=== PATIENT | male | born 1955 | race Caucasian/White ===

== ENCOUNTER 2019-06-13 15:17 | Inpatient (IN) | payer OTHER, SELFPAY ==
[2019-06-03 08:42] VITALS: BP 156/86; PULSE 96; RESP 18; TEMP 37.1; O2SAT 97; BMI 27.4
--- NOTE | 2019-06-11 08:18 | PM.IMHP ---
H&P: HPI History of Present Illness Chief complaint: Prostate CA Narrative: Shaheed Gibbs is a 63 year old male known to me with long history of BPH and abnormal PSA. He's had prior negative prostate biopsies but recent genomic testing suggest high risk of significant prostate cancer. Recent +repeat biopsy showed a 69gm prostate with 12 of 12 cores having Rosa 3+3=6, 3+4=7, 4+3=7 and 4+4=8 cancer. Additionally, his biopsy showed some areas of intraductal ca. Staging CT-abd/pevis, bone scan and CXR were unremarkable. After discussion of therapeutic options (including active surveillance, androgen ablation, radiation therapy in its various forms and radical surgery) he's elected for robotic radical prostatectomy. He's aware of the risks of this procedure including, but not limited to, adverse cardiopulmonary events, rectal injury, failure to control his cancer, urinary incontinence and erectile dysfunction. Review of Systems Constitutional: Constitutional: Denies chills, Denies fatigue, Denies fever(s) and Denies headache(s) Eyes: Eyes: Denies blurry vision ENT: Denies vertigo, Denies dizziness, Denies headache(s) and Denies sore throat Cardiovascular: Cardiovascular: Denies chest pain, Denies syncope, Denies lightheadedness, Denies palpitations, Denies dyspnea and Denies dyspnea on exertion Respiratory: Respiratory: Denies hemoptysis, Denies dyspnea and Denies dyspnea on exertion Gastrointestinal: Gastrointestinal: Denies melena, Denies bloating, Denies hematochezia, Denies change in bowel habits, Denies change in stool character, Denies constipation, Denies diarrhea and Denies vomiting Genitourinary: Genitourinary: Denies hematuria, Denies dysuria, Denies testicular pain, Denies urinary frequency, Denies urinary hesitancy and Denies urinary urgency Integumentary/Breasts: Skin/Breast: Denies pruritus, Denies lesions and Denies rash Neurologic: Denies confusion, Denies vertigo, Denies dizziness, Denies syncope and Denies headache(s) Psychiatric: Psychiatric: Denies anxiety, Denies change in appetite and Denies confusion Endocrine: Endocrine: Denies fatigue and Denies palpitations PMFSH Social History Social History Gender identity (if verbalized by the patient): Male Meds Home Medications and Allergies Home Medications Medication Instructions Recorded Confirmed Type aspirin 81 mg PO DAILY 06/03/19 06/03/19 History hydrochlorothiazide 12.5 mg PO DAILY 06/03/19 06/03/19 History multivitamin [Multiple Vitamins] 1 tablet PO DAILY 06/03/19 06/03/19 History niacin 500 mg PO DAILY 06/03/19 06/03/19 History omega 4-fil-okg-fish oil [Fish Oil] 1 cap PO DAILY 06/03/19 06/03/19 History simvastatin 40 mg PO HS 06/03/19 06/03/19 History tamsulosin 0.4 mg PO DAILY 06/03/19 06/03/19 History verapamil 240 mg PO DAILY 06/03/19 06/03/19 History Allergies Allergy/AdvReac Type Severity Reaction Status Date / Time Penicillins AdvReac Intermediate Nausea Unverified 06/03/19 08:38 Exam Const: General: healthy appearing, comfortable, no acute distress and well developed; No confused Nutritional Appearance: well nourished Orientation/consciousness: oriented x3 and No confused HENMT: Head: normocephalic and atraumatic Ears: external ears normal Face and sinus: normal facial exam Mouth: Yes lip normal Teeth and gingiva: dentition normal Eyes: General: appearance normal, both eyes and all related structures Alignment and Position: alignment normal Eyelids: eyelids normal Cornea: corneas normal Pupils: PERRL EOM: EOM intact bilaterally Neck: Neck: normal visual inspection, full ROM and no JVD Chest: Chest palpation & inspection: normal inspection of the chest Resp: Effort & Inspection: normal respiratory effort and no use of accessory muscles Auscultation: clear to auscultation bilaterally Cardio: Jugular venous distension: no JVD Rate: regular rate Rhythm: regul
--- NOTE | 2019-06-11 12:52 | WPDANESEPPF ---
Anes - Initial Pre Proc Eval Procedure: Operation Date: 06/12/19 07:30 Proposed Procedures p Robotic Radical Prostatectomy, Bilateral Pelvic Lymphadenectomy - Rene Staples MD Date/Time: 06/11/19 12:52 Surgeon: Rene Staples MD Pre Op Diagnosis: Prostate CA Patient Data Age: 63 Gender: M Height: 5 ft 7 in Weight: 79.5 kg Last Vital Signs Temp 98.8 F 06/03/19 08:42 Pulse 96 06/03/19 08:42 Resp 18 06/03/19 08:42 BP 156/86 H 06/03/19 08:42 Pulse Ox 97 06/03/19 08:42 Allergies Allergy/AdvReac Type Severity Reaction Status Date / Time Penicillins AdvReac Intermediate Nausea Unverified 06/03/19 08:38 Home Medications Medication Instructions Recorded Confirmed Type aspirin 81 mg PO DAILY 06/03/19 06/03/19 History hydrochlorothiazide 12.5 mg PO DAILY 06/03/19 06/03/19 History multivitamin [Multiple Vitamins] 1 tablet PO DAILY 06/03/19 06/03/19 History niacin 500 mg PO DAILY 06/03/19 06/03/19 History omega 4-wug-suh-fish oil [Fish Oil] 1 cap PO DAILY 06/03/19 06/03/19 History simvastatin 40 mg PO HS 06/03/19 06/03/19 History tamsulosin 0.4 mg PO DAILY 06/03/19 06/03/19 History verapamil 240 mg PO DAILY 06/03/19 06/03/19 History Patient hx anesthesia problems: none Family hx anesthesia problems: none [facility] Past Medical History Medical History (Updated 06/11/19 @ 12:51 by Chung Sharif MD) Hyperlipidemia Hypertension Social History Social History Gender identity (if verbalized by the patient): Male Anes - Eval Final PreProcedure Day of Procedure 06/11/19 12:52 Patient weight: normal Heart: regular rate and rhythm Lungs: clear to auscultation Airway: Mallampati scale class III Neurological: alert and oriented Last oral intake: >/= 8 hours ASA classification: III Emergent: no Anesthetic plan: proceed Anesthesia type and monitoring: general ETT and standard monitoring Informed Consent: The patient's anesthetic plan and its attendant risks and benefits were discussed with the patient/family/POA. Questions were solicited and answers provided to the satisfaction of the patient/family/POA.
[2019-06-12] VITALS (12 sets, daily range): BP systolic 122–181; BP diastolic 66–102; PULSE 74–95; RESP 12–18; TEMP 36.2–36.9; O2SAT 91–100; BMI 26.4
[2019-06-12] MEDS: LACTATED RINGERS 1,000 ML 30 ML IV CONT ×2 (06:25→11:12)
--- NOTE | 2019-06-12 07:14 | WPDHPUPDATE1 ---
History and Physical Update Update Date/Time: 06/12/19 07:14 History and Physical has been reviewed, including an updated exam of the patient. There are NO changes in the patient's condition. Risks, benefits, and alternatives have been discussed and questions answered. Patient agrees to proceed with procedure.
[2019-06-12] MEDS: ceFAZolin 2 GM/D5W 50 ML 2 GM/50 ML BAG IVPB (07:33)
--- NOTE | 2019-06-12 11:15 | PM.PROC ---
Procedure Note - Detailed Date of procedure: 06/12/19 Pre-op diagnosis: Prostate CA Post-op diagnosis: same Procedure performed: Robotic prostatectomy with bilateral pelvic lymphadenectomy Description of procedure: The patient was brought to the operative suite, where he was prepped and draped in routine sterile fashion while in a dorsal lithotomy, deep Trendelenburg position. A supraumbilical 10 mm trocar was placed after insufflation of the abdomen with a Veress needle. Three robotic ports were then placed under direct vision. Two of these were placed in the right lower quadrant - 10 cm and 20 cm lateral to, and in line with, the umbilicus. A third robotic trocar was placed 10 cm to the left of the umbilicus, and 20 cm to the left of the umbilicus, a 12 mm standard laparoscopic trocar was placed to be used as an assistant restaurant general manager port. Lastly, a 5 mm trocar was placed in the left upper quadrant midway between the umbilicus and the left robotic trocar. Attention was then turned to the prostatectomy. I opted for a posterior approach in this patient. An incision was made in the parietal peritoneum along the posterior bladder/posterior prostate about 2 cm above the reflection of the peritoneum over the anterior rectum. The seminal vesicles and vas deferens were immediately identified. Dissection is undertaken in a fashion so as to avoid electrocautery as much as possible, particularly near the tips of the seminal vesicles. Dissection was also carried out in the midline so as to avoid any encounters with the ureters. The vas deferens and the seminal vesicles were dissected in their entirety to the base of the prostate. The plane anterior to Denoviller's fascia, anterior to the rectum and posterior to the prostate was then developed. I then dropped the bladder by incising the anterior parietal peritoneum just lateral to the median umbilical ligaments bilaterally. The bladder was dropped from the anterior abdominal and pelvic wall. The endopelvic fascia was identified and incised bilaterally, allowing for dissection of the posterior-lateral aspect of the prostate. The puboprostatic ligaments were transected near their origin from the posterior pubic ramus. This posterior lateral dissection of the prostate is also undertaken in a fashion so as to avoid electrocautery as much as possible. The dorsal vein of the penis is then secured with an 0 -Vicryl ligature. Attention is then turned to the bladder neck. The anterior bladder neck is incised at the vesico-prostatic junction. The previously placed urethral catheter was drawn through the urethrotomy. A very small bladder neck was maintained throughout the remainder of this dissection. The posterior bladder neck was incised in a fashion so as to avoid any injury to the ureteral orifices. Again, the small aperture of the bladder neck was maintained. The previously dissected vas deferens and the seminal vesicles were brought through the posterior bladder neck incision. The lateral prostatic pedicles were then carefully dissected from the lateral aspect of the prostate bilaterally. The prostatic pedicles were secured with Weck clips and transected. The neurovascular bundles were carefully dissected from the posterior-lateral aspect of the prostate. The dorsal vein of the penis was incised with electrocautery. Using cold scissors, the urethra was incised. After withdrawing the previously placed urethral catheter, the posterior urethra was sharply incised, as was the rectalurethralis muscle. Attention was then turned to a bilateral pelvic lymphadenectomy. The limits of this dissection were similar bilaterally. Specifically, the limits were the bifurcation of the common iliac vein proximally, the inguinal ligament distally, the obturator nerve posteriorly and the anterior aspect to the external iliac vein laterally. This dissection was undertaken with care to avoid any injury to the obturator nerve. The prostate, seminal vesic
[2019-06-12] MEDS: HYDROMORPHONE HCL 1 MG/ML INJ 0.5 MG IV PUSH ×2 (12:02→12:14)
--- NOTE | 2019-06-12 13:02 | ADMGEN ---
This patient, Shaheed Gibbs, was admitted to [facility] Surg Room 327-01. Patient/family oriented to hospital policies and general routines including ID bracelet, bed and alarms, visiting hours, pain management, procedures, bathroom and other care routines, personal items, smoking policy, room service/diet, and visiting hours. Valuables list has been completed. Information on how to activate the Rapid Response Team has been discussed. Patient/Family are encouraged to report perceived risks to care and to ask questions if they do not understand what they are told or what they should do.
[2019-06-12] MEDS: HYOSCYAMINE SULFATE 0.125 MG TABLET SUBLINGUAL ×3 (13:10→20:37)
[2019-06-12] MEDS: LACTATED RINGERS 1,000 ML 125 ML IV CONT ×2 (13:11→20:40)
[2019-06-12] MEDS: KETOROLAC 15 MG/ML VIAL (*BKC) IV PUSH ×2 (13:31→20:38)
[2019-06-12] MEDS: SIMVASTATIN 20 MG TABLET 40 MG PO (20:36)
[2019-06-12] MEDS: MORPHINE SULFATE 2 MG/ML INJ IV PUSH (22:56)
[2019-06-13] VITALS (7 sets, daily range): BP systolic 145–155; BP diastolic 85–94; PULSE 91–106; RESP 16–18; TEMP 36.4–37.1; O2SAT 94–97
--- NOTE | ~2019-06-13 | CT_ITS ---
EXAMINATION: CT guide absc cath placement DATE: 06/13/2019 11:20 INDICATION: Urinoma. TECHNIQUE: The procedure including the risks, benefits, and alternatives was discussed with the patie nt. Risks discussed included bleeding and infection. The patient understood the risks and benefits an d agreed to proceed. The patient was confirmed to be receiving appropriate antibiotic coverage. The skin overlying the abdomen was prepped and draped in usual sterile fashion. Anesthetic was administe red with 1% lidocaine subcutaneously. An 18 gauge trochar needle was inserted into the pelvic fluid c ollection with CT guidance. The needle was exchanged over a wire for 6 Tanzanian, 8 Tanzanian, and 9 Tanzanian dilators and then for an 8.5 Tanzanian pigtail catheter. The catheter was stitched to the skin, and a s terile dressing was applied. The mA was adjusted according to patient size. Iterative reconstruction technique was employed. The dose-length product was 328.03 mGy-cm. There were no immediate complicati ons. FINDINGS: CT images demonstrate the catheter within the fluid collection. IMPRESSION: 1. Successful CT-guided pelvic urinoma drainage. Reviewed, dictated and finalized at location A. ASS FACILITATOR
--- NOTE | ~2019-06-13 | CT_ITS ---
EXAMINATION: CT abdomen pelvis wo con DATE: 06/13/2019 07:57 INDICATION: Abdominal distention and abdominal pain TECHNIQUE: Computed tomography (CT) of the abdomen and pelvis was performed without intravenous contr ast. The dose-length product (DLP) was 519.15 mGy-cm. Automated exposure control and iterative recons truction technique were employed. COMPARISON: 04/30/2019 FINDINGS: Minimal dependent atelectasis is present in the lung bases. The heart size is normal. Mild bilateral gynecomastia is noted. There is a moderate volume of low-density abdominal and pelvic ascit es. Cysts of the liver measure up to 2.2 cm. The spleen, pancreas, gallbladder, and adrenal glands ar e normal. The right kidney is unremarkable. There is a 4 cm cyst of the left kidney. There is calcifi ed atherosclerosis of the aorta and many of the other arteries. No pathologically enlarged abdominal or pelvic lymph nodes are identified. A small amount of free intraperitoneal gas is consistent with r ecent surgery. The bladder is decompressed by Johnson catheter. There is moderate lumbar spondylosis. IMPRESSION: 1. Moderate volume of low-density abdominal and pelvic ascites. This case was discussed with Dr. Kady agudelo and finding likely reflects urine leak. Reviewed, dictated and finalized at location A. ATRIC MEDICAL ASSISTANT IMPRESSION: 1. Moderate volume of low-density abdominal and pelvic ascites. This case was d iscussed with Dr. Staples and finding likely reflects urine leak.
[2019-06-13] MEDS: MORPHINE SULFATE 2 MG/ML INJ IV PUSH ×3 (01:09→22:43)
[2019-06-13] MEDS: KETOROLAC 15 MG/ML VIAL (*BKC) IV PUSH (05:21)
[2019-06-13] MEDS: HYOSCYAMINE SULFATE 0.125 MG TABLET SUBLINGUAL ×2 (05:22→19:51)
[2019-06-13] MEDS: LACTATED RINGERS 1,000 ML 125 ML IV CONT (05:22)
[2019-06-13 06:17] LABS: Hematocrit 42.4 % (42.0-52.0)
[2019-06-13 06:32] LABS: Blood Urea Nitrogen 27 mg/dL (9-20); Calcium 8.7 mg/dL (8.4-10.2); Carbon Dioxide 24 mmol/L (22-30); Chloride 92 mmol/L (98-107); Estimated CRCL calculation 33 ml/min; Estimated Glomerular Filt Rate 36; Glucose 102 mg/dL (75-110); Potassium 4.2 mmol/L (3.4-5.0); Sodium 129 mmol/L (137-145)
--- NOTE | 2019-06-13 07:16 | WPDUROPN2 ---
Progress Note: A&P Assessment and Plan (1) Prostate cancer: Code(s): C61 - Malignant neoplasm of prostate Status: Acute Additional Plan Notable abdominal distension and hypoactive bowel sounds developed overnight. H/H stable but serum creat. elevated. Will get CT-abd/pelvis wo contrast. Subjective Subjective Date/Time Seen: 06/13/19 07:16 C/O abdominal distension. Review of Systems Cardiovascular: Cardiovascular: Denies chest pain, Denies lightheadedness, Denies palpitations and Denies dyspnea Respiratory: Respiratory: Denies dyspnea Gastrointestinal: Gastrointestinal: Reports bloating, Denies diarrhea, Denies nausea and Denies vomiting Genitourinary: Genitourinary: Denies hematuria and Denies dysuria Endocrine: Endocrine: Denies palpitations Exam Const: General: no acute distress Eyes: General: appearance normal, both eyes and all related structures Neck: Neck: No no JVD Resp: Effort & Inspection: normal respiratory effort GI: Inspection: distended GI Palp: No abdominal tenderness and No guarding Auscultation: abnormal bowel sounds (hypoactive) Urinary Catheter: Urinary Catheter: patent and draining Objective Data Vital Signs Vital Signs: Vital Signs - 24 hr 06/12/19 11:12 06/12/19 11:25 06/12/19 11:40 Temperature 36.9 C Pulse Rate 79 76 87 Respiratory Rate 18 14 14 Blood Pressure 134/81 154/102 H 167/101 H Pulse Oximetry 100 100 98 06/12/19 11:55 06/12/19 12:10 06/12/19 12:25 Temperature 36.9 C Pulse Rate 85 84 87 Respiratory Rate 16 14 12 Blood Pressure 181/96 H 145/88 H 138/83 Pulse Oximetry 96 94 95 06/12/19 12:55 06/12/19 13:10 06/12/19 13:40 Temperature 36.2 C L 36.2 C L 36.2 C L Pulse Rate 78 79 74 Respiratory Rate 16 16 16 Blood Pressure 122/71 136/76 135/76 Pulse Oximetry 91 94 94 06/12/19 14:40 06/12/19 22:00 06/13/19 02:00 Temperature 36.4 C L 36.6 C 36.8 C Pulse Rate 74 87 91 Respiratory Rate 16 16 16 Blood Pressure 133/66 154/98 H 155/94 H Pulse Oximetry 96 96 96 06/13/19 06:00 Temperature 37.1 C Pulse Rate 101 H Respiratory Rate 16 Blood Pressure 150/92 H Pulse Oximetry 97 Intake/Output Intake/Output: Intake & Output 06/10/19 06/11/19 06/12/19 06/13/19 23:59 23:59 23:59 23:59 Intake Total 2300 1500 Output Total 360 225 Balance 1940 1275 Meds/Results Medications: Active Medications Generic Name Dose Route Start Last Admin Trade Name Freq PRN Reason Stop Dose Admin Hydrochlorothiazide 12.5 mg 06/13/19 09:00 Hydrochlorothiazide PO DAILY [facility] Hyoscyamine 0.125 mg 06/12/19 12:34 06/13/19 05:22 Levsin Tablet SUBLINGUAL 0.125 mg Q4H PRN Administration Bladder Spasm Lactated Ringer's 1,000 mls @ 125 mls/hr 06/12/19 12:34 06/13/19 05:22 Lr - Lactated Ringers Iv IV CONT 125 mls/hr .Q8H FERMIN Administration Acetaminophen 1,000 mg in 100 mls @ 400 mls/hr 06/12/19 18:00 06/13/19 05:27 Ofirmev 1,000 Mg Ivpb IVPB 06/13/19 12:35 400 mls/hr Q6H FERMIN Administration Ketorolac Tromethamine 15 mg 06/12/19 12:34 06/13/19 05:21 Toradol Inj IV PUSH 06/13/19 12:35 15 mg Q6H PRN Administration Pain Rated 4-6 Levofloxacin 500 mg 06/13/19 09:00 Levaquin Tab PO DAILY [facility] Morphine Sulfate 2 mg 06/12/19 22:21 06/13/19 01:09 Morphine Sulfate Inj IV PUSH 2 mg Q2H PRN Administration Breakthrough Pain Naloxone HCl 0.1 mg 06/12/19 12:34 Narcan IV PUSH Q2M PRN Opiate Reversal Niacin 500 mg 06/13/19 09:00 Niacin Sustained Release PO 07/13/19 09:01 DAILY [facility] Ondansetron HCl 4 mg 06/12/19 12:34 Zofran Inj IV PUSH Q6H PRN Nausea And Vomiting Simvastatin 40 mg 06/12/19 21:00 06/12/19 20:36 Zocor PO 40 mg HS FERMIN Administration Verapamil HCl 240 mg 06/13/19 09:00 Verapamil Hcl Er PO DAILY FERMIN Labs Labs: Laboratory Results - last 24 hr 06/13/19 06/13/19 06:02 0
--- NOTE | 2019-06-13 11:09 | PC.NURSE ---
To Radiology per BED 0950 FOR DRAIN PLACEMENT IV INTACT. IN NO APPARENT DISTRESS.[ ]
[2019-06-13] MEDS: hydroCHLOROthiazide 12.5 MG CAPSULE PO (12:07)
[2019-06-13] MEDS: NIACIN SA 500 MG TABLET PO (12:08)
[2019-06-13] MEDS: VERAPAMIL HCL ER 240 MG TABLET.ER PO (12:09)
--- NOTE | 2019-06-13 12:37 | WPDANESPN ---
Anes - Prog Note Post-Op Date/Time: 06/13/19 12:37 Cardiovascular status: normal Respiratory status: normal Airway patency: baseline Mental status: baseline Post-Op hydration status: normal Vital Signs: Last Vital Signs Temp 36.8 C 06/13/19 12:00 Pulse 98 06/13/19 12:00 Resp 18 06/13/19 12:00 BP 145/85 H 06/13/19 12:00 Pulse Ox 95 06/13/19 12:00 Pain Score (VAS): 03/13, patient up to bedside chair at time of assessment. Pt abdomen appears firm and distended, RN aware, to contact Dr. Staples. I/O: Intake & Output 06/12/19 06/13/19 06/13/19 23:59 07:59 15:59 Intake Total 1600 1500 Output Total 250 225 Balance 1350 1275 Laboratory Tests 06/13/19 06:02 06/13/19 06:02 06/13/19 06/13/19 06:02 06:02 Hgb 15.0 Hct 42.4 Sodium 129 L Potassium 4.2 Chloride 92 L Carbon Dioxide 24 BUN 27 H D Creatinine 1.90 H Estim Creat Clear Calc 33 Estimated GFR 36 L Glucose 102 Calcium 8.7 Post-procedural complaints: none Patient Feedback: Patient satisfied with anesthetic care.
[2019-06-13] MEDS: ACETAMINOPHEN 500 MG TABLET PO (19:51)
[2019-06-13] MEDS: SIMVASTATIN 20 MG TABLET 40 MG PO (19:52)
[2019-06-14 00:14] LABS: Creatinine Urine 26.6 mg/dL
[2019-06-14] MEDS: LACTATED RINGERS 1,000 ML 125 ML IV CONT ×3 (01:47→17:22)
[2019-06-14] MEDS: HYOSCYAMINE SULFATE 0.125 MG TABLET SUBLINGUAL ×5 (03:25→23:13)
[2019-06-14 06:00] VITALS: BP 160/89; PULSE 96; RESP 18; TEMP 36.2; O2SAT 96
[2019-06-14 07:07] LABS: Hematocrit 41.8 % (42.0-52.0); Hemoglobin 14.3 g/dL (14.0-18.0)
[2019-06-14 07:21] LABS: Blood Urea Nitrogen 21 mg/dL (9-20); Calcium 9.3 mg/dL (8.4-10.2); Carbon Dioxide 30 mmol/L (22-30); Chloride 91 mmol/L (98-107); Estimated CRCL calculation 61 ml/min; Estimated Glomerular Filt Rate > 60; Glucose 98 mg/dL (75-110); Sodium 131 mmol/L (137-145)
[2019-06-14] MEDS: hydroCHLOROthiazide 12.5 MG CAPSULE PO (09:01)
[2019-06-14] MEDS: VERAPAMIL HCL ER 240 MG TABLET.ER PO (09:01)
[2019-06-14] MEDS: NIACIN SA 500 MG TABLET PO (09:01)
--- NOTE | 2019-06-14 09:21 | WPDUROPN2 ---
Progress Note: A&P Additional Plan Feeling much better with resolving ileus. Pelvic drain placed - fluid c/w some urine leak. Will continue pelvic drain to suction for now. Eventually, will switch to gravity drainage. Pt. aware he'll go home with both drain and catheter. Subjective Subjective Date/Time Seen: 06/14/19 09:21 Passing flatus, feeling much better today. Review of Systems Cardiovascular: Cardiovascular: Denies chest pain, Denies lightheadedness, Denies palpitations and Denies dyspnea Respiratory: Respiratory: Denies dyspnea Gastrointestinal: Gastrointestinal: Reports bloating (improved), Denies diarrhea, Denies nausea and Denies vomiting Genitourinary: Genitourinary: Denies hematuria and Denies dysuria Endocrine: Endocrine: Denies palpitations Exam Const: General: no acute distress Resp: Effort & Inspection: normal respiratory effort GI: Inspection: distended GI Palp: Yes abdominal tenderness and No guarding Auscultation: hypoactive bowel sounds (much improved over yesterday) Objective Data Vital Signs Vital Signs: Vital Signs - 24 hr 06/13/19 12:00 06/13/19 14:00 06/13/19 20:20 Temperature 36.8 C 36.4 C L Pulse Rate 98 106 H 95 Respiratory Rate 18 18 18 Blood Pressure 145/85 H 150/91 H Pulse Oximetry 95 95 97 06/13/19 22:00 06/14/19 06:00 Temperature 36.8 C 36.2 C L Pulse Rate 95 96 Respiratory Rate 16 18 Blood Pressure 150/89 H 160/89 H Pulse Oximetry 94 96 Intake/Output Intake/Output: Intake & Output 06/11/19 06/12/19 06/13/19 06/14/19 23:59 23:59 23:59 23:59 Intake Total 2300 2600 1400 Output Total 360 3750 950 Balance 1940 -1150 450 Meds/Results Medications: Active Medications Generic Name Dose Route Start Last Admin Trade Name Freq PRN Reason Stop Dose Admin Acetaminophen 500 mg 06/13/19 21:00 06/13/19 19:51 Tylenol Tablet PO 500 mg HS FERMIN Administration Diphenhydramine HCl 50 mg 06/13/19 21:00 06/13/19 19:51 Benadryl Cap PO 50 mg HS FERMIN Administration Hydrochlorothiazide 12.5 mg 06/13/19 09:00 06/14/19 09:01 Hydrochlorothiazide PO 12.5 mg DAILY FERMIN Administration Hyoscyamine 0.125 mg 06/12/19 12:34 06/14/19 07:05 Levsin Tablet SUBLINGUAL 0.125 mg Q4H PRN Administration Bladder Spasm Lactated Ringer's 1,000 mls @ 125 mls/hr 06/12/19 12:34 06/14/19 09:17 Lr - Lactated Ringers Iv IV CONT 125 mls/hr .Q8H FERMIN Administration Levofloxacin 500 mg 06/13/19 09:00 06/14/19 09:01 Levaquin Tab PO 500 mg DAILY FERMIN Administration Morphine Sulfate 2 mg 06/12/19 22:21 06/13/19 22:43 Morphine Sulfate Inj IV PUSH 2 mg Q2H PRN Administration Breakthrough Pain Naloxone HCl 0.1 mg 06/12/19 12:34 Narcan IV PUSH Q2M PRN Opiate Reversal Niacin 500 mg 06/13/19 09:00 06/14/19 09:01 Niacin Sustained Release PO 07/13/19 09:01 500 mg DAILY FERMIN Administration Ondansetron HCl 4 mg 06/12/19 12:34 Zofran Inj IV PUSH Q6H PRN Nausea And Vomiting Simvastatin 40 mg 06/12/19 21:00 06/13/19 19:52 Zocor PO 40 mg HS FERMIN Administration Verapamil HCl 240 mg 06/13/19 09:00 06/14/19 09:01 Verapamil Hcl Er PO 240 mg DAILY FERMIN Administration Radiology Results: ITS Impressions Abdomen/Pelvis CT 06/13/19 07:59 IMPRESSION: 1. Moderate volume of low-density abdominal and pelvic ascites. This case was discussed with Dr. Staples and finding likely reflects urine leak. Catheter Placement CT 06/13/19 11:33 IMPRESSION: 1. Successful CT-guided pelvic urinoma drainage. Labs Labs: Laboratory Results - last 24 hr 06/13/19 06/14/19 06/14/19 23:37 06:52 06:52 Hgb 14.3 Hct 41.8 L Sodium 131 L Potassium 4.0 Chloride 91 L Carbon Dioxide 30 BUN 21 H Creatinine 1.00 Estim Creat Clear Calc 61 Estimated GFR > 60 Glucose 98 Calcium 9.3 Urine Creatinine 26.6
[2019-06-14 14:00] VITALS: BP 147/81; PULSE 73; RESP 18; TEMP 36.7; O2SAT 96
[2019-06-14] MEDS: ACETAMINOPHEN 500 MG TABLET PO (20:36)
[2019-06-14] MEDS: SIMVASTATIN 20 MG TABLET 40 MG PO (20:36)
[2019-06-14 22:00] VITALS: BP 152/86; PULSE 85; RESP 16; TEMP 36.8; O2SAT 96
[2019-06-15] MEDS: LACTATED RINGERS 1,000 ML 125 ML IV CONT ×2 (01:31→09:19)
[2019-06-15] MEDS: HYOSCYAMINE SULFATE 0.125 MG TABLET SUBLINGUAL ×3 (05:43→17:38)
[2019-06-15 05:53] VITALS: BP 149/79; PULSE 88; RESP 18; TEMP 36.8; O2SAT 97
[2019-06-15 06:23] LABS: Hematocrit 37.1 % (42.0-52.0); Hemoglobin 12.9 g/dL (14.0-18.0)
[2019-06-15 06:36] LABS: Blood Urea Nitrogen 15 mg/dL (9-20); Calcium 8.7 mg/dL (8.4-10.2); Carbon Dioxide 30 mmol/L (22-30); Chloride 93 mmol/L (98-107); Estimated CRCL calculation 85 ml/min; Estimated Glomerular Filt Rate > 60; Glucose 101 mg/dL (75-110); Potassium 3.6 mmol/L (3.4-5.0); Sodium 132 mmol/L (137-145)
[2019-06-15 06:44] LABS: Creatinine Urine 31.7 mg/dL
[2019-06-15] MEDS: hydroCHLOROthiazide 12.5 MG CAPSULE PO (09:11)
[2019-06-15] MEDS: NIACIN SA 500 MG TABLET PO (09:12)
[2019-06-15] MEDS: VERAPAMIL HCL ER 240 MG TABLET.ER PO (09:12)
--- NOTE | 2019-06-15 09:57 | WPDUROPN2 ---
Progress Note: A&P Assessment and Plan (1) Prostate cancer: Code(s): C61 - Malignant neoplasm of prostate Status: Acute Assessment and Plan: ileus resolving drain--minimal output Cr is now normal Taking PO and advancing to regular path pending Subjective Subjective Date/Time Seen: 06/15/19 09:57 Doing better, took clears last night. Regular diet this am. Passing flatus. Drain minimal output. Good UO Review of Systems Eyes: Eyes: Reports no additional eye complaints ENT: Reports hearing normal Cardiovascular: Cardiovascular: Denies lightheadedness Exam HENMT: Head: normal to inspection Chest: Chest palpation & inspection: normal inspection of the chest Resp: Effort & Inspection: normal respiratory effort GI: Inspection: normal to inspection (improved---mild distended--patient reports improved), distended and incision (intact) : General: Yes bladder normal to palpation, Yes CVA tenderness and Yes no CVA tenderness Male General Exam: Yes normal external exam Urinary Catheter: Urinary Catheter: patent and draining and urine pink Objective Data Vital Signs Vital Signs: Vital Signs - 24 hr 06/14/19 14:00 06/14/19 22:00 06/15/19 05:53 Temperature 36.7 C 36.8 C 36.8 C Pulse Rate 73 85 88 Respiratory Rate 18 16 18 Blood Pressure 147/81 H 152/86 H 149/79 H Pulse Oximetry 96 96 97 Intake/Output Intake/Output: Intake & Output 06/12/19 06/13/19 06/14/19 06/15/19 23:59 23:59 23:59 23:59 Intake Total 2300 2600 2400 2450 Output Total 360 3750 2725 680 Balance 1940 -1150 -325 1770 Meds/Results Medications: Active Medications Generic Name Dose Route Start Last Admin Trade Name Freq PRN Reason Stop Dose Admin Acetaminophen 500 mg 06/13/19 21:00 06/14/19 20:36 Tylenol Tablet PO 500 mg HS FERMIN Administration Diphenhydramine HCl 50 mg 06/13/19 21:00 06/14/19 20:36 Benadryl Cap PO 50 mg HS FERMIN Administration Hydrochlorothiazide 12.5 mg 06/13/19 09:00 06/15/19 09:11 Hydrochlorothiazide PO 12.5 mg DAILY FERMIN Administration Hyoscyamine 0.125 mg 06/12/19 12:34 06/15/19 05:43 Levsin Tablet SUBLINGUAL 0.125 mg Q4H PRN Administration Bladder Spasm Lactated Ringer's 1,000 mls @ 125 mls/hr 06/12/19 12:34 06/15/19 09:19 Lr - Lactated Ringers Iv IV CONT 125 mls/hr .Q8H FERMIN Administration Levofloxacin 500 mg 06/13/19 09:00 06/15/19 09:11 Levaquin Tab PO 500 mg DAILY FERMIN Administration Morphine Sulfate 2 mg 06/12/19 22:21 06/13/19 22:43 Morphine Sulfate Inj IV PUSH 2 mg Q2H PRN Administration Breakthrough Pain Naloxone HCl 0.1 mg 06/12/19 12:34 Narcan IV PUSH Q2M PRN Opiate Reversal Niacin 500 mg 06/13/19 09:00 06/15/19 09:12 Niacin Sustained Release PO 07/13/19 09:01 500 mg DAILY FERMIN Administration Ondansetron HCl 4 mg 06/12/19 12:34 Zofran Inj IV PUSH Q6H PRN Nausea And Vomiting Simvastatin 40 mg 06/12/19 21:00 06/14/19 20:36 Zocor PO 40 mg HS FERMIN Administration Verapamil HCl 240 mg 06/13/19 09:00 06/15/19 09:12 Verapamil Hcl Er PO 240 mg DAILY FERMIN Administration Radiology Results: ITS Impressions Abdomen/Pelvis CT 06/13/19 07:59 IMPRESSION: 1. Moderate volume of low-density abdominal and pelvic ascites. This case was discussed with Dr. Staples and finding likely reflects urine leak. Catheter Placement CT 06/13/19 11:33 IMPRESSION: 1. Successful CT-guided pelvic urinoma drainage. Labs Labs: Laboratory Results - last 24 hr 06/15/19 06/15/19 06/15/19 05:46 06:06 06:06 Hgb 12.9 L Hct 37.1 L Sodium 132 L Potassium 3.6 Chloride 93 L Carbon Dioxide 30 BUN 15 D Creatinine 0.70 Estim Creat Clear Calc 85 Estimated GFR > 60 Glucose 101 Calcium 8.7 Urine Creatinine 31.7
[2019-06-15 14:00] VITALS: BP 126/67; PULSE 83; RESP 16; TEMP 36.8; O2SAT 97
[2019-06-15] MEDS: SIMVASTATIN 20 MG TABLET 40 MG PO (20:16)
[2019-06-15] MEDS: KETOROLAC 15 MG/ML VIAL (*BKC) IV PUSH (20:18)
[2019-06-15 21:28] VITALS: BP 134/72; PULSE 79; RESP 18; TEMP 37.1; O2SAT 97
[2019-06-16 06:00] VITALS: BP 131/69; PULSE 73; RESP 16; TEMP 37.3; O2SAT 96
[2019-06-16 06:17] LABS: Creatinine Urine 22.1 mg/dL
[2019-06-16 06:34] LABS: Blood Urea Nitrogen 18 mg/dL (9-20); Calcium 8.7 mg/dL (8.4-10.2); Carbon Dioxide 30 mmol/L (22-30); Chloride 95 mmol/L (98-107); Estimated CRCL calculation 85 ml/min; Estimated Glomerular Filt Rate > 60; Glucose 97 mg/dL (75-110); Potassium 3.5 mmol/L (3.4-5.0); Sodium 133 mmol/L (137-145)
--- NOTE | 2019-06-16 07:22 | PM.DS ---
DS: Diagnosis Admitting Diagnosis Admitting Diagnosis: Prostate cancer Essential (primary) hypertension DS: Summary Time Spent with Patient Time attestation: Total time spent providing and/or coordinating discharge services: 20 minutes. This patient was admitted on the morning of his planned robotic prostatectomy. This procedure was uneventful, as was his postoperative course. By the evening of the procedure he was sitting at the bedside in tolerating a liquid diet. The following morning he was noted to have a very distended abdomen, hypoactive bowel sounds and an elevated serum creat. CT-abd/pelvis showed more abdominal fluid than expected to I asked radiology to place a percutaneous drain. Inital evaluation suggested a urine leak. Over next 72-hours his drainage dropped-off to just 25cc/24-hours, his ileus resolved and serum creatinine returned to normal. His postoperative hemoglobin and serum creatinine were unremarkable. At the time of discharge he has been instructed in appropriate care for his Johnson catheter with both a leg bag and bedside bag. He was also instructed in care of his pelvic drain. He will be discharged with plans to follow-up in 1 day for possible drain removal. Exam Const: General: no acute distress Resp: Effort & Inspection: normal respiratory effort GI: Inspection: non-distended GI Palp: No abdominal tenderness and No guarding Auscultation: normal bowel sounds DS: Data Data Completed and Pending Completed studies during hospitalization: Pending at discharge 06/12/19 09:30 Surgical [PTH] Routine Labs on day of discharge: Labs from last 24 hours 06/16/19 06/16/19 05:58 05:27 Sodium 133 L Potassium 3.5 Chloride 95 L Carbon Dioxide 30 BUN 18 Creatinine 0.70 Estim Creat Clear Calc 85 Estimated GFR > 60 Glucose 97 Calcium 8.7 Urine Creatinine 22.1 Discharge Plan Discharge Attending physician on discharge: Rene Staples Discharging Clinician: Rene Staples Anticipated Discharge Date/Time: 06/16/19 07:19 Patient Disposition: Home, Self-Care Activity: no shower Diet: as tolerated and regular Discharge Instructions: 1) Johnson catheter -> leg bag / bedside bag at night. 2) No lifting/straining >15lbs. x3 weeks. 3) No driving x1-week. 4) Resume normal, pre-operative diet. 5) ALICIA to bulb suction. Teach patient to measure and empty drain. 5) Follow-up Sunday06/17/2019 - my offic will contact with time. Patient Instructions: Antibiotic Form, Pain Management (DC), Robot Assisted Laparoscopic Prostatectomy (DC) Stand Alone Forms: General Discharge Information Follow-up/Referrals: Rene Staples MD [Physician] - 06/17/19 12:00 am Discharge Medications: Continued simvastatin 40 mg Tablet 40 mg PO HS RF: 0 verapamil 240 mg Tablet Extended Release 240 mg PO DAILY RF: 0 hydrochlorothiazide 12.5 mg Tablet 12.5 mg PO DAILY RF: 0 Held multivitamin [Multiple Vitamins] Tablet 1 tablet PO DAILY RF: 0 Hold Instructions: Resume on 06/23/19. aspirin 81 mg Tablet,Chewable 81 mg PO DAILY RF: 0 Hold Instructions: Resume on 06/23/19. omega 4-ego-wvo-fish oil [Fish Oil] 1,000 mg (120 mg-180 mg) Capsule 1 cap PO DAILY RF: 0 Hold Instructions: Resume on 06/23/19. Discontinued tamsulosin 0.4 mg Capsule 0.4 mg PO DAILY RF: 0 No Action niacin 500 mg Tablet 500 mg PO DAILY RF: 0 Date of admission: 06/13/19 15:17 Primary Care Provider: [facility] Admitting Provider: Rene Staples Attending physician on admission: Rene Staples
[2019-06-16] MEDS: hydroCHLOROthiazide 12.5 MG CAPSULE PO (07:58)
[2019-06-16] MEDS: NIACIN SA 500 MG TABLET PO (07:58)
[2019-06-16] MEDS: VERAPAMIL HCL ER 240 MG TABLET.ER PO (07:58)
== END 2019-06-16 09:50 | disposition home or self-care (01) | DRG 667 ==
LOC: ANHSURGERY 19:56
PROVIDERS: Admitting Provider Urology; PCP Family Medicine; Visit Provider Urology
PROC: 0VT04ZZ Resection of Prostate, Percutaneous Endoscopic Approach (ICD-10-PCS; CPT 55867; principal; 2019-06-12 07:30)
DX: N36.8 Other specified disorders of urethra (principal); C61 Malignant neoplasm of prostate; N40.0 Benign prostatic hyperplasia without lower urinary tract symptoms; I10 Essential (primary) hypertension
CPT/HCPCS: 36415; 74176; 75989; 80048; 82570; 85014; 85018; 88305; 88307; 88309; A9270; C1769; J0131; J0690; J1100; J1170; J1885; J2250; J2270; J2405; J2704; J2710; J3010; J7120

== ENCOUNTER 2021-10-28 08:20 | Outpatient (CLI) | payer OTHER, SELFPAY ==
--- NOTE | 2021-10-28 08:28 | ECG_ITS ---
Measurements Intervals [place] Rate: 75 P: 62 OR: 338 QRS: 0 QRSD: 117 T: 7 QT: 404 QTc: 453 Interpretive Statements SINUS RHYTHM WITH FIRST DEGREE AV BLOCK INCOMPLETE RIGHT BUNDLE BRANCH BLOCK BORDERLINE T WAVE ABNORMALITY- INFERIOR LEADS ABNORMAL ECG Electronically Signed On 10-28-2021 8:43:41 CDT by Brad Durbin D.O.
[2021-10-28 09:03] LABS: Anion Gap 9 mmol/L (8-16); Blood Urea Nitrogen 15 mg/dL (9-20); Carbon Dioxide 26 mmol/L (22-30); Chloride 102 mmol/L (98-107); Estimated Glomerular Filt Rate > 60; Glucose 130 mg/dL (65-110); Potassium 3.7 mmol/L (3.4-5.0); Sodium 137 mmol/L (137-145)
== END 2021-10-28 08:21 | disposition home or self-care (01) ==
PROVIDERS: Anesthesiology; PCP Internal Medicine; Visit Provider Urology
DX: Z01.818 Encounter for other preprocedural examination (principal); I10 Essential (primary) hypertension; R94.31 Abnormal electrocardiogram [ECG] [EKG]
CPT/HCPCS: 36415; 80048; 93005

== ENCOUNTER 2021-11-03 01:21 | Day surgery (SDC) | payer OTHER, SELFPAY ==
--- NOTE | 2021-10-27 07:17 | PM.HPGS ---
History of Present Illness History of Present Illness Consent: Risks, benefits, and alternatives have been discussed and questions answered. Patient agrees to proceed with procedure. Chief complaint: Intrinsic Sphincter Deficiency Narrative: Shaheed Gibbs is a 66 year old male who is status post robotic prostatectomy in June 2019 followed by adjuvant pelvic radiation. He continues to have scan urinary incontinence. He has some component of overactive bladder that has had a minimal response to anticholinergics. For the stress incontinence, after discussion of therapeutic options including pelvic floor therapy, bulking agent injection and male sling procedures, he has elected for a bulking agent injection. He is aware the risk including, limited to, failure to correct his incontinence, need for additional injections very slight risk of urinary incontinence. Review of Systems Constitutional: Constitutional: Denies chills, Denies fatigue, Denies fever(s) and Denies headache(s) Eyes: Eyes: Denies blurry vision ENT: Denies vertigo, Denies dizziness, Denies headache(s) and Denies sore throat Cardiovascular: Cardiovascular: Denies chest pain, Denies lightheadedness, Denies palpitations and Denies dyspnea Respiratory: Respiratory: Denies dyspnea Gastrointestinal: Gastrointestinal: Denies diarrhea, Denies nausea and Denies vomiting Genitourinary: Genitourinary: Denies hematuria and Denies dysuria Integumentary/Breasts: Skin/Breast: Denies pruritus, Denies lesions and Denies rash Neurologic: Denies confusion, Denies vertigo, Denies dizziness, Denies syncope and Denies headache(s) Psychiatric: Psychiatric: Denies anxiety, Denies change in appetite and Denies confusion Endocrine: Endocrine: Denies palpitations [facility] Past Medical History Medical History (Updated 10/27/21 @ 07:19 by Rene Staples MD) Hyperlipidemia Hypertension Social History Social History Smoking packs per day: 1 Smoking cigarettes per day: 20.0 Years smoked: 20 Smoking pack-years: 20.00 Smoking status: Former smoker Tobacco type: cigarettes Second hand tobacco smoke exposure: Yes Alcohol intake: current Drinks per week: 12 Substance use: never Substance use type: does not use Gender identity (if verbalized by the patient): Male Spiritual care concerns: No Agree to blood products: Yes Meds Home Medications and Allergies Home Medications Medication Instructions Recorded Confirmed Type aspirin 81 mg chewable tablet 81 mg PO DAILY 06/03/19 06/03/19 History hydrochlorothiazide 12.5 mg tablet 12.5 mg PO DAILY 06/03/19 06/03/19 History multivitamin (Multiple Vitamins) 1 tablet PO DAILY 06/03/19 06/03/19 History niacin 500 mg tablet 500 mg PO DAILY 06/03/19 06/03/19 History omega 6-avi-vca-fish oil 1,000 mg 1 cap PO DAILY 06/03/19 06/03/19 History (120 mg-180 mg) capsule (Fish Oil) simvastatin 40 mg tablet 40 mg PO HS 06/03/19 06/03/19 History verapamil 240 mg tablet,extended 240 mg PO DAILY 06/03/19 06/03/19 History release ciprofloxacin HCl 500 mg tablet 500 mg PO Q12H #10 tabs 06/16/19 Rx hydrocodone 5 mg-acetaminophen 325 1 - 2 tablet PO Q6H PRN pain #20 06/16/19 Rx mg tablet tabs Allergies Allergy/AdvReac Type Severity Reaction Status Date / Time Penicillins AdvReac Intermediate Nausea Verified 06/14/19 09:00 Exam Const: General: no acute distress Resp: Effort & Inspection: normal respiratory effort GI: Inspection: non-distended GI Palp: No abdominal tenderness and No Guarding due to palpation present (GI) Auscultation: normal bowel sounds Assessment and Plan Assessment and plan (1) Intrinsic sphincter deficiency: Code(s): N36.42 - Intrinsic sphincter deficiency (ISD) Status: Acute Assessment and Plan: Cystoscopy with Macroplastique injection
--- NOTE | 2021-10-27 12:17 | PC.NURSE ---
Report to the Outpatient Waiting Room, entrance under the green pavilion located off [facility], at time _0745 on date _11/03/21 . OR Time: _0945 . - You and your visitor will be asked a series of questions to screen for COVID 19 for your protection. - Only one visitor is allowed at this time. - The patient visitor is requested to leave or wait in car when not with patient. - A mask is required within the hospital. Patients may have clear liquids (water, carbonated beverages, clear teas, apple juice) until 3 hours prior to surgery with a maximum of 20 ounces. - No food from midnight until time of surgery - Infants may have breast milk until 4 hours before surgery, infant formula 6 hours prior to surgery. - Children will be allowed to drink immediately following surgery. If applicable, please bring a bottle or sippy cup to assist with drinking. Juice, water, soda, and popsicles are readily available. For infants on formula, please bring formula the day of surgery. Pacifiers are allowed. Take the following medications with a SIP of water the morning of surgery: _VERAPAMIL Medications to discontinue per physician _ASPIRIN/NIACIN PER DR MERLOS ALL VITAMINS AND SUPPLEMENTS 3 DAYS PRE OP Date to take last dose__10/26/21 Please no make-up, nail kazakh, hairspray, perfume, deodorant, or body powder the day of surgery. No jewelry (including any body piercings) or valuables the day of surgery, leave them at home. Please take a shower or bath the night before, or the morning of, surgery with an antibacterial soap. Wear comfortable, loose fitting clothing. Children are encouraged to wear pajamas. - Jewelry must be removed prior to entering the operating room. Rings and piercings that are not removed may be cut off. - The hospital will not accept responsibility for valuables. - Please leave all valuables, including medications, at home the day of surgery. If you are going home after surgery, a licensed farm truck driver must drive you home. - NO public transportation without another adult. - We recommend that an adult stay with you for 24 hours following discharge. - We also recommend that you do not drive, make important decision, drink alcoholic beverages, or take any drugs that were not prescribed by your health care provider for at least 24 hours after your discharge time. For Pediatric surgeries, we recommend two adults accompany the child home (only one inside the building at this time). Follow any additional instructions given to you from your surgeon. If you or anyone in your household have experienced Covid symptoms in the past week, please notify your surgeon or the nurse liaison at the phone number below for possible testing. Telephone instructions given to _PATIENT and asked if any additional questions and then verbalized understanding. Patient advised to call surgeon office or pre surgery nurse liaison [phone] if any additional questions.
[2021-10-27 12:25] VITALS: BMI 26.6
--- NOTE | 2021-11-03 06:32 | WPDHPUPDATE1 ---
History and Physical Update Update Date/Time: 11/03/21 06:32 History and Physical has been reviewed, including an updated exam of the patient. There are NO changes in the patient's condition. Risks, benefits, and alternatives have been discussed and questions answered. Patient agrees to proceed with procedure.
[2021-11-03] MEDS: LACTATED RINGERS 1,000 ML 30 ML IV CONT (08:15)
[2021-11-03 08:27] VITALS: BP 156/90; PULSE 96; RESP 18; TEMP 36.9; O2SAT 97
--- NOTE | 2021-11-03 08:44 | P.PNAN_ITS ---
Anes - Initial Pre Proc Eval Procedure: Operation Date: 11/03/21 09:45 Proposed Procedures p Cystoscopy with Macroplastique Injection - Rene Staples MD Date/Time: 11/03/21 08:44 Surgeon: Rene Staples MD Pre Op Diagnosis: Intrinsic Sphincter Deficiency Patient Data Age: 66 Gender: M Height: 1.73 m Weight: 77.15 kg Last Vital Signs Temp 36.9 C 11/03/21 08:27 Pulse 96 11/03/21 08:27 Resp 18 11/03/21 08:27 BP 156/90 H 11/03/21 08:27 Pulse Ox 97 11/03/21 08:27 O2 Del Method Room Air 11/03/21 08:27 Allergies Allergy/AdvReac Type Severity Reaction Status Date / Time Penicillins AdvReac Intermediate Nausea Verified 11/03/21 08:25 Home Medications Medication Instructions Recorded Confirmed Type aspirin 81 mg chewable tablet 81 mg PO DAILY 06/03/19 10/27/21 History multivitamin (Multiple Vitamins) 1 tablet PO DAILY 06/03/19 10/27/21 History niacin 500 mg tablet 500 mg PO DAILY 06/03/19 10/27/21 History omega 8-laf-fnh-fish oil 1,000 mg 1 cap PO DAILY 06/03/19 10/27/21 History (120 mg-180 mg) capsule (Fish Oil) simvastatin 40 mg tablet 40 mg PO HS 06/03/19 10/27/21 History verapamil 240 mg tablet,extended 240 mg PO DAILY 06/03/19 11/03/21 History release desmopressin 55.3 mcg 55.3 mcg sublingual HS 10/27/21 10/27/21 History disintegrating tablet,sublingual (men) (N[place]durna (men)) hydrochlorothiazide 25 mg tablet 1 tablet PO DAILY 10/27/21 10/27/21 History Patient hx anesthesia problems: none Family hx anesthesia problems: none Results Review: All pre-operative results and documents have been reviewed as part of the pre- operative evaluation. [facility] Past Medical History Medical History (Updated 10/27/21 @ 07:19 by Rene Staples MD) Hyperlipidemia Hypertension Social History Social History Smoking packs per day: 1 Smoking cigarettes per day: 20.0 Years smoked: 20 Smoking pack-years: 20.00 Smoking status: Former smoker Tobacco type: cigarettes Second hand tobacco smoke exposure: Yes Smoking end date: 06/04/98 Alcohol intake: current Drinks per week: 12 Substance use: never Substance use type: does not use Living arrangements: with family Gender identity (if verbalized by the patient): Male Spiritual care concerns: No Agree to blood products: Yes Anes - Eval Final PreProcedure Day of Procedure 11/03/21 08:44 Patient weight: overweight Heart: regular rate and rhythm Lungs: clear to auscultation Airway: Mallampati scale class II Neurological: alert and oriented Last oral intake: >/= 8 hours ASA classification: III Emergent: no Anesthetic plan: proceed Anesthesia type and monitoring: general GIVS and standard monitoring Results Review: All pre-operative results and documents have been reviewed as part of the pre- operative evaluation. Informed Consent: The patient's anesthetic plan and its attendant risks and benefits were discussed with the patient/family/POA. Questions were solicited and answers provided to the satisfaction of the patient/family/POA.
[2021-11-03] MEDS: ceFAZolin 2 GM/D5W 50 ML 2 GM/50 ML BAG IVPB (08:57)
[2021-11-03] MEDS: LIDOCAINE HCL 2% GEL UROJET 10 ML PKG MUCOUS MEM (09:08)
--- NOTE | 2021-11-03 09:27 | W.PM.PROC2 ---
Procedure Note - Detailed Date of Procedure 11/03/21 Pre-op Diagnosis Intrinsic Sphincter Deficiency Post-op Diagnosis Same Procedure Performed Cystoscopy, macroplastique device Surgeon Rene Staples MD Description of Procedure The patient was brought to the operative suite where he was prepped and draped in the routine fashion while in the dorsal lithotomy position after the uneventful administration of systemic sedation by the anesthesia department. 2% lidocaine jelly was introduced into the urethra and allowed to stand for an appropriate period of time. Cystoscopy was undertaken with a 19 [place] rigid cystoscope. There was no evidence of urethral stricture or bladder neck contracture and the prostate is surgically absent. The bladder mucosa was endoscopically normal without hyperemia or neoplasm. Using the Macroplastique delivery system a total of 2 vials were injected just distal to the bladder neck (1/4 delivered at the 3:00 and 9:00 position / ? delivered at the 6:00 position). After each injection the the needle is not withdrawn from the tissue for 15-seconds, allowing time for the agent to solidify. At the termination of the procedure there was good circumferential coaptation of the proximal urethra. After removal of the cystoscope the bladder was drained with a 14F red rubber catheter. The patient tolerated the procedure well and was taken to the outpatient recovery room in good condition. Pathology None sent Complications No immediate complications Condition Stable Disposition PACU
[2021-11-03 09:35] VITALS: BP 124/70; PULSE 83; RESP 16; O2SAT 95
[2021-11-03 10:05] VITALS: BP 123/72; PULSE 76; RESP 16
== END 2021-11-03 10:30 | disposition home or self-care (01) ==
PROVIDERS: PCP Internal Medicine; Visit Provider Urology
PROC: 3E0K8GC Introduction of Other Therapeutic Substance into Genitourinary Tract, Via Natural or Artificial Opening Endoscopic (ICD-10-PCS; CPT 51715; principal; 2021-11-03 09:45)
DX: N36.42 Intrinsic sphincter deficiency (ISD) (principal); I10 Essential (primary) hypertension; E78.5 Hyperlipidemia, unspecified; Z79.82 Long term (current) use of aspirin; Z87.891 Personal history of nicotine dependence
CPT/HCPCS: 51715; 36415; 80048; 93005; A9270; J0690; J1100; J2405; J2704; J7120; L8606

== ENCOUNTER 2022-02-02 00:42 | Day surgery (SDC) | payer OTHER, SELFPAY ==
--- NOTE | 2022-01-30 09:40 | PC.NURSE ---
Report to the Outpatient Waiting Room, entrance under the green pavilion located off [facility], at time _0600 on date __02/02/22 . OR Time: __729 . - You and your visitor will be asked to self-screen and do not enter if you have any COVID symptoms. - Only one visitor and NO children visitors are allowed at this time. - The patient visitor is requested to leave or wait in car when not with patient due to restrictions. - A mask is required within the hospital. Patients may have clear liquids (water, carbonated beverages, clear teas, apple juice) until 3 hours prior to surgery with a maximum of 20 ounces. - No food from midnight until time of surgery - Infants may have breast milk until 4 hours before surgery, infant formula 6 hours prior to surgery. - Children will be allowed to drink immediately following surgery. If applicable, please bring a bottle or sippy cup to assist with drinking. Juice, water, soda, and popsicles are readily available. For infants on formula, please bring formula the day of surgery. Pacifiers are allowed. Take the following medications with a SIP of water the morning of surgery: ____VERAPAMIL Medications to discontinue per physician ____PT STATES ASPIRIN_7 DAYS PRE OP PER DR MERLOS AND ALL VITAMINS AND SUPPLEMENTS 3 DAYS PRE OP Date to take last dose__ASPIRIN 01/25/22... ALL VIT/SUPP 01/29/22 Please no make-up, nail arabic, hairspray, perfume, deodorant, or body powder the day of surgery. No jewelry (including any body piercings) or valuables the day of surgery, leave them at home. Please take a shower or bath the night before, or the morning of, surgery with an antibacterial soap. Wear comfortable, loose fitting clothing. Children are encouraged to wear pajamas. - Jewelry must be removed prior to entering the operating room. Rings and piercings that are not removed may be cut off. - The hospital will not accept responsibility for valuables. - Please leave all valuables, including medications, at home the day of surgery. If you are going home after surgery, a licensed concrete mixing truck driver must drive you home. - NO public transportation without another adult. - We recommend that an adult stay with you for 24 hours following discharge. - We also recommend that you do not drive, make important decision, drink alcoholic beverages, or take any drugs that were not prescribed by your health care provider for at least 24 hours after your discharge time. For Pediatric surgeries, we recommend two adults accompany the child home (only one inside the building at this time). Follow any additional instructions given to you from your surgeon. If you or anyone in your household have experienced Covid symptoms in the past week, please notify your surgeon or the nurse liaison at the phone number below for possible testing. Telephone instructions given to _PATIENT and asked if any additional questions and then verbalized understanding. Patient advised to call surgeon office or pre surgery nurse liaison [phone] if any additional questions.
[2022-01-30 10:52] VITALS: BMI 26.6
--- NOTE | 2022-02-01 13:26 | P.PNAN_ITS ---
Anes - Initial Pre Proc Eval Procedure: Operation Date: 02/02/22 07:30 Proposed Procedures p Cystoscopy, with Macroplastique Injection - Rene Staples MD Date/Time: 02/01/22 13:26 Surgeon: Rene Staples MD Pre Op Diagnosis: intrinsic sphincter Patient Data Age: 66 Gender: M Height: 1.7 m Weight: 77.2 kg Allergies Allergy/AdvReac Type Severity Reaction Status Date / Time Penicillins AdvReac Intermediate Nausea Verified 02/02/22 06:22 Home Medications Medication Instructions Recorded Confirmed Type aspirin 81 mg chewable tablet 81 mg PO DAILY 06/03/19 02/02/22 History multivitamin (Multiple Vitamins 1 tablet PO DAILY 06/03/19 02/02/22 History tablet) niacin 500 mg tablet 500 mg PO DAILY 06/03/19 02/02/22 History omega 3-epz-jqp-fish oil 1,000 mg 1 cap PO DAILY 06/03/19 02/02/22 History (120 mg-180 mg) capsule (Fish Oil) simvastatin 40 mg tablet 40 mg PO HS 06/03/19 02/02/22 History verapamil 240 mg tablet,extended 240 mg PO DAILY 06/03/19 02/02/22 History release desmopressin 55.3 mcg 55.3 mcg sublingual HS 10/27/21 02/02/22 History disintegrating tablet,sublingual (men) (Nocdurna (men)) hydrochlorothiazide 25 mg tablet 1 tablet PO DAILY 10/27/21 02/02/22 History sertraline 50 mg tablet 50 mg PO HS 01/30/22 02/02/22 History Patient hx anesthesia problems: none Family hx anesthesia problems: none Results Review: All pre-operative results and documents have been reviewed as part of the pre- operative evaluation. [facility] Past Medical History Medical History (Updated 02/01/22 @ 13:26 by Abdiel Turner MD) Arthritis Hyperlipidemia Hypertension Prostate cancer Social History Social History Smoking packs per day: 1 Smoking cigarettes per day: 20.0 Years smoked: 20 Smoking pack-years: 20.00 Smoking status: Former smoker Tobacco type: cigarettes Second hand tobacco smoke exposure: Yes Smoking end date: 06/04/98 Alcohol intake: current Drinks per week: 12 Substance use: never Substance use type: does not use Living arrangements: with family Gender identity (if verbalized by the patient): Male Sexual Orientation (if Verbalized by the Patient): Straight or Heterosexual Spiritual care concerns: No Agree to blood products: Yes Anes - Eval Final PreProcedure Day of Procedure 02/01/22 13:26 Patient weight: overweight Heart: regular rate and rhythm Lungs: clear to auscultation Airway: Mallampati scale class II Neurological: alert and oriented Last oral intake: >/= 8 hours ASA classification: III Emergent: no Anesthetic plan: proceed Anesthesia type and monitoring: general LMA and standard monitoring Results Review: All pre-operative results and documents have been reviewed as part of the pre- operative evaluation. Informed Consent: The patient's anesthetic plan and its attendant risks and benefits were discussed with the patient/family/POA. Questions were solicited and answers provided to the satisfaction of the patient/family/POA.
[2022-02-02] MEDS: LACTATED RINGERS 1,000 ML 30 ML IV CONT (06:39)
--- NOTE | 2022-02-02 06:44 | WPDHPUPDATE1 ---
History and Physical Update Update Date/Time: 02/02/22 06:44 History and Physical has been reviewed, including an updated exam of the patient. There are NO changes in the patient's condition. Risks, benefits, and alternatives have been discussed and questions answered. Patient agrees to proceed with procedure.
[2022-02-02 06:52] VITALS: BP 165/83; PULSE 98; RESP 16; TEMP 36.3; O2SAT 97
[2022-02-02] MEDS: ceFAZolin 2 GM/D5W 50 ML 2 GM/50 ML BAG IVPB (07:23)
[2022-02-02] MEDS: LIDOCAINE HCL 2% GEL UROJET 10 ML PKG MUCOUS MEM (07:34)
--- NOTE | 2022-02-02 07:46 | W.PM.PROC2 ---
Procedure Note - Detailed Date of Procedure 02/02/22 Pre-op Diagnosis Intrinsic sphincter defeciency Post-op Diagnosis Same Procedure Performed Cystoscopy, bulking agent injection Surgeon Rene Staples MD Description of Procedure The patient was brought to the operative suite where he was prepped and draped in the routine fashion while in the dorsal lithotomy position after the uneventful administration of systemic sedation by the anesthesia department. 2% lidocaine jelly was introduced into the urethra and allowed to stand for an appropriate period of time. Cystoscopy was undertaken with a 19 [place] rigid cystoscope. There was no evidence of urethral stricture or bladder neck contracture and the prostate is surgically absent. The bladder mucosa was endoscopically normal without hyperemia or neoplasm. Using the Macroplastique delivery system a total of 2 vials were injected just distal to the bladder neck (1/4 delivered at the 3:00 and 9:00 position / ? delivered at the 6:00 position). After each injection the the needle is not withdrawn from the tissue for 15-seconds, allowing time for the agent to solidify. At the termination of the procedure there was good circumferential coaptation of the proximal urethra. After removal of the cystoscope the bladder was drained with a 12F red rubber catheter. The patient tolerated the procedure well and was taken to the outpatient recovery room in good condition. Drains No Packing No Complications No immediate complications Condition Stable
[2022-02-02 07:51] VITALS: BP 140/87; PULSE 83; RESP 16; O2SAT 95
[2022-02-02 08:20] VITALS: BP 133/83; PULSE 73; RESP 16; O2SAT 97
[2022-02-02 08:45] VITALS: BP 131/74; PULSE 56; RESP 16
== END 2022-02-02 08:53 | disposition home or self-care (01) ==
PROVIDERS: PCP Internal Medicine; Visit Provider Urology
PROC: 3E0K8GC Introduction of Other Therapeutic Substance into Genitourinary Tract, Via Natural or Artificial Opening Endoscopic (ICD-10-PCS; CPT 51715; principal; 2022-02-02 07:30)
DX: N36.42 Intrinsic sphincter deficiency (ISD) (principal); I10 Essential (primary) hypertension; E78.5 Hyperlipidemia, unspecified; Z79.82 Long term (current) use of aspirin; Z85.46 Personal history of malignant neoplasm of prostate; Z87.891 Personal history of nicotine dependence
CPT/HCPCS: 51715; A9270; J0690; J2704; J3010; J7120; L8606

== ENCOUNTER 2022-02-04 06:31 | Emergency (ER) | payer OTHER, SELFPAY ==
[2022-02-04] VITALS (10 sets, daily range): BP systolic 111–158; BP diastolic 73–103; PULSE 101; RESP 18; TEMP 36.4; O2SAT 96–99
--- NOTE | 2022-02-04 07:09 | PC.NURSE ---
Patient report received from SHILPI Escobedo. All questions answered and care of patient assumed.
--- NOTE | 2022-02-04 07:37 | ED.GENADULT ---
HPI - General Adult General Chief complaint: Urogenital-Male Stated complaint: Clogged cath Time Seen by Provider: 02/04/22 07:01 Source: RN notes reviewed History of Present Illness HPI narrative: Patient presents emergency department from home for decreased urine output. Patient states that he had a procedure done by Dr. Staples on . He states that he had gone home and had been unable to urinate and return to the office and a Johnson catheter was placed. States after the Johnson catheter was placed he had been having no problems urinating but had noted some mild hematuria he states that since last night he has had minimal output from his Johnson catheter is concerned that it is clogged he states he does have some lower abdominal pressure and distention he denies any fevers or chills states he is on Bactrim which she has been take Related Data Home Medications Medication Instructions Recorded Confirmed aspirin 81 mg chewable tablet 81 mg PO DAILY 06/03/19 02/02/22 multivitamin (Multiple Vitamins 1 tablet PO DAILY 06/03/19 02/02/22 tablet) niacin 500 mg tablet 500 mg PO DAILY 06/03/19 02/02/22 omega 0-ofl-uxw-fish oil 1,000 mg 1 cap PO DAILY 06/03/19 02/02/22 (120 mg-180 mg) capsule (Fish Oil) simvastatin 40 mg tablet 40 mg PO HS 06/03/19 02/02/22 verapamil 240 mg tablet,extended 240 mg PO DAILY 06/03/19 02/02/22 release desmopressin 55.3 mcg 55.3 mcg sublingual HS 10/27/21 02/02/22 disintegrating tablet,sublingual (men) (Nocdurna (men)) hydrochlorothiazide 25 mg tablet 1 tablet PO DAILY 10/27/21 02/02/22 sertraline 50 mg tablet 50 mg PO HS 01/30/22 02/02/22 Allergies Allergy/AdvReac Type Severity Reaction Status Date / Time Penicillins AdvReac Intermediate Nausea Verified 02/04/22 06:37 Review of Systems Review of Systems: Gen.: Denies fevers or chills Respiratory: Denies shortness of breath CV: Denies chest pain GI: Reports lower abdominal pressure, denies nausea, emesis or diarrhea see HPI Musculoskeletal: Denies back pain or muscle pain Neuro: Denies numbness, tingling, weakness or focal weakness Skin: Denies rash Except as documented, all other systems reviewed and negative Gen.: Denies fevers or chills PMFSH Past Medical History Medical History Arthritis Hyperlipidemia Hypertension Prostate cancer Social History Social History Smoking packs per day: 1 Smoking cigarettes per day: 20.0 Years smoked: 20 Smoking pack-years: 20.00 Smoking status: Former smoker Tobacco type: cigarettes Second hand tobacco smoke exposure: Yes Smoking end date: 06/04/98 Alcohol intake: current Drinks per week: 12 Substance use: never Substance use type: does not use Gender identity (if verbalized by the patient): Male Sexual Orientation (if Verbalized by the Patient): Straight or Heterosexual Spiritual care concerns: No Agree to blood products: Yes Exam Narrative: APPEARANCE: No acute distress, nontoxic, resting in bed EYES: EOMI HEENT: Normocephalic, atraumatic, OMM RESPIRATORY: No respiratory distress ABDOMINAL: Soft, nontender, nondistended, no rebound or guarding : Johnson catheter present with minimal urine output MUSCULOSKELETAl: Moves all extremities. No clubbing, cyanosis or edema. NEURO: Awake and alert. Following commands, speech normal, no focal deficits SKIN:: Warm, dry. No rashes lesions or abrasions PSYCHIATRIC: Normal affect/mood, Course Course Emergency Course: Patient's Johnson was replaced in the ER with good return of urine the Johnson was flushed with removal of several small blood clots Reviewed old records Discussed with Dr. Winston for urology at this time feels patient may be discharged home with follow-up with urology as an outpatient Discussed with patient results of workup and diagnosis. Discussed need for follow-up with primary ca
--- NOTE | 2022-02-04 08:00 | PC.NURSE ---
Hudson catheter changes as per verbal order from Dr. Willams. New 18g hudson catheter placed. 400ml bloody urinary output. Catheter flushed multiple times and initially several small blood clots removed. Catheter now flushing clear.
== END 2022-02-04 10:04 | disposition home or self-care (01) ==
PROVIDERS: Emergency Provider Emergency Medicine; PCP Internal Medicine
DX: R33.9 Retention of urine, unspecified (principal); T83.091A Other mechanical complication of indwelling urethral catheter, initial encounter; Z87.891 Personal history of nicotine dependence; M19.90 Unspecified osteoarthritis, unspecified site; E11.9 Type 2 diabetes mellitus without complications; I10 Essential (primary) hypertension; Z85.46 Personal history of malignant neoplasm of prostate; Z79.82 Long term (current) use of aspirin
CPT/HCPCS: 51702; 99283

== ENCOUNTER 2022-02-05 06:22 | Emergency (ER) | payer OTHER, SELFPAY ==
[2022-02-05 06:27] VITALS: BP 143/82; PULSE 98; RESP 17; TEMP 36.3; O2SAT 98
--- NOTE | 2022-02-05 06:44 | PC.NURSE ---
This RN irrigated patients catheter, successful. Catheter is draining dark red urine with small clots. Patient states he feels much better and the pain is getting better. Patient tolerated well.
--- NOTE | 2022-02-05 07:16 | ED.GENADULT ---
HPI - General Adult General Chief complaint: Urogenital-Male Stated complaint: hudson with retention Time Seen by Provider: 02/05/22 07:02 Source: RN notes reviewed History of Present Illness HPI narrative: Patient presents emergency department from home for Hudson catheter malfunction. Patient had urologic procedure done on 02/02/2022. Following that procedure the patient was unable to urinate and a Hudson catheter was placed. Patient been doing well with his Hudson catheter until it became clogged yesterday he come to the emergency department and been seen by myself that time we changed the Hudson catheter and several blood clots been noted patient had good flow since that time had discussed with urology UA has been negative and the patient had been sent home patient states he been doing well until again he notes decreased output starting last night and presented to the emergency department as he also had fullness again in his lower abdomen denies any fevers or chills nausea vomiting or any other symptoms Related Data Home Medications Medication Instructions Recorded Confirmed aspirin 81 mg chewable tablet 81 mg PO DAILY 06/03/19 02/02/22 multivitamin (Multiple Vitamins 1 tablet PO DAILY 06/03/19 02/02/22 tablet) niacin 500 mg tablet 500 mg PO DAILY 06/03/19 02/02/22 omega 4-kmd-xhs-fish oil 1,000 mg 1 cap PO DAILY 06/03/19 02/02/22 (120 mg-180 mg) capsule (Fish Oil) simvastatin 40 mg tablet 40 mg PO HS 06/03/19 02/02/22 verapamil 240 mg tablet,extended 240 mg PO DAILY 06/03/19 02/02/22 release desmopressin 55.3 mcg 55.3 mcg sublingual HS 10/27/21 02/02/22 disintegrating tablet,sublingual (men) (Nocdurna (men)) hydrochlorothiazide 25 mg tablet 1 tablet PO DAILY 10/27/21 02/02/22 sertraline 50 mg tablet 50 mg PO HS 01/30/22 02/02/22 Allergies Allergy/AdvReac Type Severity Reaction Status Date / Time Penicillins AdvReac Intermediate Nausea Verified 02/04/22 06:37 Review of Systems Review of Systems: Gen.: Denies fevers or chills Respiratory: Denies shortness of breath CV: Denies chest pain GI: Denies abdominal pain nausea, emesis or diarrhea see HPI Musculoskeletal: Denies back pain or muscle pain Neuro: Denies numbness, tingling, weakness or focal weakness Skin: Denies rash Except as documented, all other systems reviewed and negative PMFSH Past Medical History Medical History Arthritis Hyperlipidemia Hypertension Prostate cancer Social History Social History Smoking packs per day: 1 Smoking cigarettes per day: 20.0 Years smoked: 20 Smoking pack-years: 20.00 Smoking status: Former smoker Tobacco type: cigarettes Second hand tobacco smoke exposure: Yes Smoking end date: 06/04/98 Alcohol intake: current Drinks per week: 12 Substance use: never Substance use type: does not use Gender identity (if verbalized by the patient): Male Sexual Orientation (if Verbalized by the Patient): Straight or Heterosexual Spiritual care concerns: No Agree to blood products: Yes Exam Narrative: APPEARANCE: No acute distress, nontoxic, resting in bed EYES: EOMI HEENT: Normocephalic, atraumatic, RESPIRATORY: No respiratory distress ABDOMINAL: Soft, mild firmness in the suprapubic region with mild tenderness no tenderness right upper quadrant, left upper quadrant, right lower quadrant left lower quadrant no rebound or guarding Hudson catheter present with minimal dark drainage MUSCULOSKELETAl: Moves all extremities. No clubbing, cyanosis or edema. NEURO: Awake and alert. Following commands, speech normal, no focal deficits SKIN:: Warm, dry. No rashes lesions or abrasions PSYCHIATRIC: Normal affect/mood, Course Course Emergency Course: Hudson catheter flushed in ED with several blood clots removed Hudson now draining Discussed with Dr. Burrows presentation work-up at this time fe
[2022-02-05 07:20] LABS: Basophils Percent Auto 0.4 % (0.2-1.2); Eosinophils Absolute Auto 0.1 K/mm3 (0-0.3); Eosinophils Percent Auto 2.6 % (0-4.4); Hematocrit 37.4 % (42.0-52.0); Hemoglobin 12.9 g/dL (14.0-18.0); Immature Granulocyte Absolute 0.03 K/mm3 (0.00-0.031); Immature Granulocyte Percent A 0.5 % (0-0.5); Lymphocytes Absolute Auto 0.89 K/mm3 (0.9-3.2); Lymphocytes Percent Auto 16.3 % (18.3-44.2); Mean Corpuscular HGB Conc 34.5 g/dl (32-36); Mean Corpuscular Hemoglobin 30.9 pg (26-34); Mean Corpuscular Volume 89.7 fl (80-100); Mean Platelet Volume 9.7 fl (7.4-10.4); Monocytes Absolute Auto 0.4 K/mm3 (0.1-0.6); Monocytes Percent Auto 7.9 % (2.6-8.5); Neutrophils Percent Auto 72.3 % (45.5-73.1); Platelet Count Result 183 k/mm3 (150-375); Red Blood Count 4.17 M/mm3 (4.6-6.20); Red Cell Distribution Width 12.5 % (11.5-14.5); White Blood Count 5.5 K/mm3 (4.5-10.0)
[2022-02-05 07:31] LABS: Anion Gap 15 mmol/L (8-16); Blood Urea Nitrogen 17 mg/dL (9-20); Calcium 8.9 mg/dL (8.4-10.2); Carbon Dioxide 26 mmol/L (22-30); Chloride 96 mmol/L (98-107); Estimated Glomerular Filt Rate > 60; Glucose 119 mg/dL (65-110); Potassium 3.7 mmol/L (3.4-5.0); Sodium 137 mmol/L (137-145)
== END 2022-02-05 08:40 | disposition home or self-care (01) ==
PROVIDERS: Emergency Provider Emergency Medicine; PCP Internal Medicine
DX: T83.091A Other mechanical complication of indwelling urethral catheter, initial encounter (principal); E78.5 Hyperlipidemia, unspecified; I10 Essential (primary) hypertension; M19.90 Unspecified osteoarthritis, unspecified site; Z85.46 Personal history of malignant neoplasm of prostate; Z87.891 Personal history of nicotine dependence; Y84.6 Urinary catheterization as the cause of abnormal reaction of the patient, or of later complication, without mention of misadventure at the time of the procedure
CPT/HCPCS: 36415; 80048; 85025; 99283

== ENCOUNTER 2024-04-01 11:14 | Outpatient (CLI) | payer OTHER, SELFPAY ==
--- NOTE | ~2024-04-01 | US_ITS ---
EXAMINATION: US soft tissue head and neck DATE: 04/01/2024 11:28 INDICATION: Posterior neck mass. TECHNIQUE: Multiple grayscale and Doppler ultrasound images of the head and neck were obtained. COMPARISON: None FINDINGS: In the left posterior neck, there is a 1.1 x 1.0 x 0.4 cm hyperechoic subcutaneous mass. IMPRESSION: 1. 1.1 cm hyperechoic subcutaneous mass in left posterior neck. The differential diagnosis includes l ipoma, inflammation, or other benign mass such as hemangioma. Reviewed, dictated and finalized at location [] IMPRESSION: 1. 1.1 cm hyperechoic subcutaneous mass in left posterior neck. The differentia l diagnosis includes lipoma, inflammation, or other benign mass such as hemangi argelia.
== END 2024-04-01 11:15 | disposition home or self-care (01) ==
LOC: MICIMG 11:15
PROVIDERS: PCP Internal Medicine
DX: R22.1 Localized swelling, mass and lump, neck (principal)
CPT/HCPCS: 76536